=== PATIENT | male | born 1975 | race Caucasian/White ===

== ENCOUNTER 2020-04-21 21:11 | Emergency (ER) | payer OTHER ==
[2020-04-21 21:55] LABS: #Lymphocytes 1.2 thou/uL (1.20-3.40); #Monocytes 0.8 thou/uL (0.11-0.59); #Neutrophils 5.8 thou/uL (1.40-6.50); %Basophils 0.2 % (0.0-1.0); %Eosinophils 0.2 % (0.0-10.0); %Lymphocytes 14.8 % (21.0-51.0); %Monocytes 10.1 % (0.0-10.0); %Neutrophils 74.7 % (42.0-75.0); Hemoglobin 14.1 g/dL (14.0-18.0); Mean Corpuscular HGB CONC 34.7 g/dL (32.0-36.0); Mean Corpuscular Hemoglobin 30.1 pg (27.0-31.0); Mean Corpuscular Volume 86.6 fL (78.0-98.0); Mean Platelet Volume 8.1 fL (7.4-10.4); Platelet Count 230 thou/uL (130-400); RBC Distribution Width 10.9 % (11.5-14.5); Red Blood Cell (RBC) Count 4.69 mill/uL (4.70-6.10); White Blood Cell (WBC) Count 7.8 thou/uL (4.8-10.8)
[2020-04-21 22:21] LABS: ALT (SGPT) 15 U/L (8-55); AST (SGOT) 20 U/L (5-34); Albumin 3.4 g/dL (3.5-5.0); Alkaline Phosphatase 159 U/L (40-110); Anion Gap 16 mmol/L (10-20); BUN (Urea Nitrogen) 9 mg/dL (8.9-20.6); Bilirubin, Total 0.3 mg/dL (0.2-1.2); Calc. Creatinine Clearance 0 mL/min (70-130); Calcium 8.4 mg/dL (7.8-10.44); Carbon Dioxide 22 mmol/L (22-29); Chloride 99 mmol/L (98-107); Estimated GFR-MDRD 81; Globulin 3.5 g/dL (2.4-3.5); Glucose 275 mg/dL (70-105); Potassium 3.6 mmol/L (3.5-5.1); Protein, Total 6.9 g/dL (6.0-8.3); Sodium 133 mmol/L (136-145)
[2020-04-21] MEDS ORDERED: Ibuprofen 800 MG TAB ONE (22:27)
[2020-04-21] MEDS ORDERED: Dexamethasone 10 MG/ML VIAL ONE (22:43)
[2020-04-22] MEDS ORDERED: Cefepime 2 GM VIAL ONE (00:12)
--- NOTE | 2020-04-22 09:38 | RAD ---
PORTABLE CHEST: HISTORY: Shortness of breath and fever. FINDINGS: Heart size is within normal limits. There are patchy bilateral lung changes which are more periphera l in distribution. Findings would suggest COVID pneumonia. Changes appear more marked in the left b ase. IMPRESSION: Patchy infiltrative lung changes suspicious for COVID. POS: [facility]
[2020-04-22 15:11] LABS: SARS-CoV-2 MS2 Positive; SARS-CoV-2 N Gene Positive; SARS-CoV-2 S Gene Positive; SARS-CoV-2 orf1ab Positive
--- NOTE | 2020-04-25 12:14 | EKG ---
Test Reason : Blood Pressure : / mmHG Vent. Rate : 111 BPM Atrial Rate : 111 BPM P-R Int : 152 ms QRS Dur : 088 ms QT Int : 326 ms P-R-T Axes : 012 -08 011 degrees QTc Int : 443 ms Sinus tachycardia Otherwise normal ECG Confirmed by KYRIE WILLARD, RISHI ([id number]), food expeditor KRYSTYNA REYES ([id number]) on 04/25/2020 12:13:41 PM Referred By: Confirmed By:RISHI MITTAL MD
== END 2020-04-22 02:44 | disposition short-term general hospital (02) ==
LOC: EEVIPCON 21:11 → ERS 21:11
DX: U07.1 COVID-19 (principal); J12.89 Other viral pneumonia; J02.9 Acute pharyngitis, unspecified; E11.9 Type 2 diabetes mellitus without complications; E78.5 Hyperlipidemia, unspecified; I10 Essential (primary) hypertension
CPT/HCPCS: 36415; 71045; 80053; 83605; 84484; 85025; 85379; 87040; 87081; 87430; 87635; 93005; 96365; 96366; 96367; 96374; J0692; J1100; J3370; J7030; U0003